=== PATIENT | female | born 1965 | race Caucasian/White ===

== ENCOUNTER 2017-05-27 19:54 | Emergency (ER) | payer OTHER, MEDICAID ==
[2017-05-27 20:01] VITALS: BP 101/67
--- NOTE | 2017-05-27 20:10 | EDPHY ---
HPI/HX/ROS/PE/MDM Narrative: CHIEF COMPLAINT: Head injury secondary to fall HPI: The patient is a 52 y/o female arriving via private vehicle, complaining of a head injury secondary to falling down several stairs 1 hour ago. While carrying a table up a flight of stairs, she slipped at the top of the stairs and fell backwards down several steps. Denies loss of consciousness, neck pain, numbness , weakness, or other injury. After the fall she called 911 and EMS advised her to present to the emergency department. She is currently feeling scared abut denies severe headache, vomiting or vision changes. Denies chest pain, abdominal pain, urinary or bowel complaints, fever. REVIEW OF SYSTEMS: Aside from elements discussed in the HPI, a comprehensive 10-point review of systems was reviewed and is negative. PMH: Denies SOCIAL HISTORY: Lives in [place] [employer], single, not employed PHYSICAL EXAM: General: Patient is alert, in no acute distress. Head: Hematoma and small abrasion present to right occiput. No deformity. No laceration. ENT: Eyes are normal to inspection. ENT inspection normal. PERRL. Neck: Normal inspection. Full range of motion. Respiratory: No respiratory distress. Breath sounds normal bilaterally. Cardiovascular: Regular rate and rhythm. Strong peripheral pulses. Normal cap refill. Abdomen: The abdomen is nontender to palpation. There are no peritoneal signs. There are normal bowel sounds. Extremities: Normal appearance. Full range of motion. Neuro: Oriented x3. Normal motor function. Normal sensory function. Normal [id number]. No pronator drift. Normal gait. CXNs 2-12 intact. ED Course: 2012: Based on patient's exam findings she does not meet [place] Head CT criteria. I have discussed costs and benefits of having imaging studies preformed; she has declined imaging studies. She is asking for Vicodin, which I have declined. I advised her to use ibuprofen or Tylenol for the pain. Return precautions provided; patient is comfortable with this plan. MDM: This patient presents with head injury. There are no red flags on history or exam to suggest intracranial bleed. I offered the patient a CTH to rule out fracture or bleed but she declines. We discussed strict return precautions. She understands risks of refusal including possible seizure, bleed, need for procedure, . General Time Seen by Provider: 05/27/17 20:06 Initial Vital Signs: Initial Vital Signs Temperature (C) 36.4 C 05/27/17 19:57 Heart Rate 85 05/27/17 19:57 Respiratory Rate 16 05/27/17 19:57 Blood Pressure 101/67 05/27/17 19:57 O2 Sat (%) 97 05/27/17 19:57 O2 Delivery Mode Room Air Allergies/Adverse Reactions: No Known Allergies Allergy (Verified 05/27/17 20:01) Home Medications: Medication Instructions Recorded No Medications [NO HOME 1 ea [facility] [place] DAILY 11/16/10 MEDICATIONS] Departure - Departure Disposition: Home, Routine, Self-Care Clinical Impression: Hematoma of scalp Qualifiers: Encounter type: initial encounter Qualified Code(s): S00.03XA - Contusion of scalp, initial encounter Abrasion of scalp Qualifiers: Encounter type: initial encounter Qualified Code(s): S00.01XA - Abrasion of scalp, initial encounter Condition: Good Instructions: Head Injury (ED), Abrasion (ED), Scalp Contusion in Adults (ED) Additional Instructions: I recommend using ice on sore areas. It is safe to sleep tonight, but expect to be more sore tomorrow. Use ibuprofen and Tylenol as directed for pain. Follow- up with your primary doctor within 72 hours. Return to the Emergency Department for severe headache, vomiting, vision changes, confusion, difficulty walking, fever or other concerns. Referrals: Catina Martin DO [Doctor of Osteopathy] - As per Instructions [facility],. [Clinic] - As per Instructions Report Scribed for: Jaime Marcum Report Scribed by: Cha Saleem Date of Report: 05/27/17 Time of Report: 20:23 Physician Review and Approval Statement: Portions of this note were transcribed by an ED scribe. I personally performed the history, physical exam, and medical decision making; and confirm the accuracy of the information in the transcribed note.
== END 2017-05-27 20:22 | disposition home or self-care (01) ==
DX: S00.03XA Contusion of scalp, initial encounter (principal); S00.01XA Abrasion of scalp, initial encounter; W10.9XXA Fall (on) (from) unspecified stairs and steps, initial encounter; Y99.8 Other external cause status; Y93.89 Activity, other specified